=== PATIENT | female | born 1980 | race Caucasian/White ===

== ENCOUNTER 2018-01-16 02:14 | Emergency (ER) | payer OTHER, MEDICAID ==
[~2018-01-16] VITALS: Ht 157.5 cm; Wt 86.2 kg
[~2018-01-16 02:14] MED LIST: ABILIFY 5 MG TAB5 M1; ABILIFY10 MG PO; ACETAMINOPHEN-1 EAC1 PO; BENZTROPINE MES1 MG PO; DARVOCET-N 1001 EACH PO; FLEXERIL PO; IBUPROFEN 800800 M1 PO; LAMICTAL XR200 MG; LEXAPRO 10 MG T10 MG; MOBIC15 MG PO; NORCO 5-325 TA1 EACH PO; PROPRANOLOL 1010 MG PO; PROPRANOLOL 20M20 M1 PO; XANAX XR1 MG; XANAX1 MG PO; ZANAFLEX4 MG PO
[2018-01-16] MEDS ORDERED: IMPLANON (02:25)
[2018-01-16 03:22] LABS: ABSOLUTE BASOPHILS 0.1 thou/uL (0.0-0.2); ABSOLUTE EOSINOPHILS 0.1 thou/uL (0.0-0.7); ABSOLUTE LYMPHOCYTES 2.2 thou/uL (0.8-5.3); ABSOLUTE MONOCYTES 0.6 thou/uL (0.0-1.2); ABSOLUTE NEUTROPHILS 8.6 thou/uL (1.6-8.1); BASOPHILS 0.6 %; EOSINOPHILS 0.8 %; HEMOGLOBIN 12.7 gm/dL (12.0-15.0); LYMPHOCYTES 19.3 %; MCH 27.5 pg (26.0-34.0); MCHC 32.6 g/dL (28.0-37.0); MCV 84.3 fL (80.0-100.0); MONOCYTES 5.5 %; MPV 8.7 fl. (7.2-11.1); NUCLEATED RBCS 0 /100WBC; PLATELET COUNT* 291 thou/uL (150-400); POLYS 73.8 %; RBC 4.63 mil/uL (4.20-5.00); RDW-CV 14.5 % (10.5-14.5); WBC 11.6 thou/uL (4.0-11.0)
[2018-01-16 03:30] LABS: URINE BILIRUBIN NEGATIVE (Negative); URINE BLOOD NEGATIVE (Negative); URINE CLARITY CLEAR; URINE COLOR YELLOW; URINE GLUCOSE-RANDOM NEGATIVE (Negative); URINE KETONES NEGATIVE (Negative); URINE LEUKOCYTES-REFLEX NEGATIVE (Negative); URINE NITRITE-REFLEX NEGATIVE (Negative); URINE PROTEIN NEGATIVE (Negative); URINE SPECIFIC GRAVITY >= 1.030 (1.005-1.030); URINE UROBILINOGEN 0.2 E.U./dl (0.2-1.0)
[2018-01-16 03:33] LABS: CALCIUM 8.7 mg/dL (8.5-10.1); CREATININE 0.9 mg/dL (0.6-1.3); POTASSIUM 3.7 mmol/L (3.5-5.1)
[2018-01-16 03:37] LABS: ALBUMIN 3.6 g/dL (3.4-5.0); TOTAL BILIRUBIN 0.2 mg/dL (<0.1-1.0); TOTAL PROTEIN 7.5 g/dL (6.4-8.2)
[2018-01-16] MEDS ORDERED: FLAGYL500 MG PO (04:52)
[2018-01-16] MEDS ORDERED: NORCO 5-325 TA1 EACH PO (04:52)
[2018-01-16] MEDS ORDERED: PHENERGAN 25 MG25 M1 PO (04:52)
[2018-01-16] MEDS ORDERED: CIPROFLOXACIN500 M1 PO (04:52)
[2018-01-16 04:58] VITALS: BP 118/66
== END 2018-01-16 04:59 | disposition home or self-care (01) ==
LOC: M.ERS 02:14
PROVIDERS: Personal Emergency Response Attendant
DX: K81.9 Cholecystitis, unspecified (principal); F41.9 Anxiety disorder, unspecified; F31.9 Bipolar disorder, unspecified; Z88.6 Allergy status to analgesic agent; Z88.1 Allergy status to other antibiotic agents; Z88.8 Allergy status to other drugs, medicaments and biological substances

== ENCOUNTER 2018-04-17 19:03 | Emergency (ER) | payer OTHER, MEDICAID ==
[~2018-04-17] VITALS: Ht 157.5 cm; Wt 90.7 kg
[~2018-04-17 19:03] MED LIST changes: +CIPROFLOXACIN500 M1 PO; +FLAGYL500 MG PO; +IMPLANON; +PHENERGAN 25 MG25 M1 PO
[2018-04-17] MEDS ORDERED: ROBAXIN 750 MG750 M1 PO (19:11)
[2018-04-17 19:47] LABS: ABSOLUTE EOSINOPHILS 0.1 thou/uL (0.0-0.7); ABSOLUTE LYMPHOCYTES 1.5 thou/uL (0.8-5.3); ABSOLUTE MONOCYTES 0.4 thou/uL (0.0-1.2); ABSOLUTE NEUTROPHILS 9.9 thou/uL (1.6-8.1); BASOPHILS 0.4 %; EOSINOPHILS 0.4 %; HEMATOCRIT 40.3 % (37.0-47.0); HEMOGLOBIN 13.1 gm/dL (12.0-15.0); LYMPHOCYTES 12.2 %; MCH 27.2 pg (26.0-34.0); MCHC 32.5 g/dL (28.0-37.0); MCV 83.7 fL (80.0-100.0); MONOCYTES 3.7 %; MPV 8.5 fl. (7.2-11.1); NUCLEATED RBCS 0 /100WBC; PLATELET COUNT* 298 thou/uL (150-400); POLYS 83.3 %; RBC 4.81 mil/uL (4.20-5.00); RDW-CV 14.4 % (10.5-14.5); WBC 11.9 thou/uL (4.0-11.0)
[2018-04-17 19:55] LABS: ALBUMIN 3.6 g/dL (3.4-5.0); TOTAL BILIRUBIN 0.4 mg/dL (<0.1-1.0); TOTAL PROTEIN 7.6 g/dL (6.4-8.2)
[2018-04-17 20:05] LABS: URINE BILIRUBIN NEGATIVE (Negative); URINE BLOOD NEGATIVE (Negative); URINE CLARITY CLEAR; URINE COLOR YELLOW; URINE GLUCOSE-RANDOM NEGATIVE (Negative); URINE KETONES NEGATIVE (Negative); URINE LEUKOCYTES-REFLEX NEGATIVE (Negative); URINE NITRITE-REFLEX NEGATIVE (Negative); URINE PROTEIN NEGATIVE (Negative); URINE SPECIFIC GRAVITY 1.015 (1.005-1.030); URINE UROBILINOGEN 0.2 E.U./dl (0.2-1.0)
[2018-04-17] MEDS ORDERED: BENTYL 20 MG TA20 M1 PO (21:41)
[2018-04-17] MEDS ORDERED: ZOFRAN ODT4 MG PO (21:41)
[2018-04-17 21:54] VITALS: BP 110/65
== END 2018-04-17 21:58 | disposition home or self-care (01) ==
LOC: M.ERS 19:03
PROVIDERS: Nurse Practitioner Family
DX: K80.50 Calculus of bile duct without cholangitis or cholecystitis without obstruction (principal); F31.9 Bipolar disorder, unspecified; F41.9 Anxiety disorder, unspecified; Z88.6 Allergy status to analgesic agent; Z88.1 Allergy status to other antibiotic agents; Z88.8 Allergy status to other drugs, medicaments and biological substances